=== PATIENT | female | born 1995 | race Caucasian/White ===

== ENCOUNTER 2017-02-08 14:58 | Emergency (ER) | payer OTHER ==
[~2017-02-08] VITALS: Ht 175.3 cm; Wt 84.0 kg
[~2017-02-08 14:58] MED LIST: CLIN-78 PO; CYCL10TA9 PO; HYDR-4003 PO; MUPI1OIN5 NASAL; NITR100 PO; NPR500T PO; ONDA4TAB9 PO; SULF1TAB7 PO; TRAM50TA2 PO
[2017-02-08 15:08] VITALS: BP 110/76; PULSE 103; RESP 16; O2SAT 99
--- NOTE | 2017-02-08 15:22 | ED.REPORT ---
HPI-Abd Pain F Under 40 Date of Service Feb 08, 2017 ED Provider: History of Present Illness: seen at urgent care on 02/06, dx with constipation drank mag citrate yesterday had small stool this am.. did a ct scan at urgent care. taking vicodin at the same time. no primary care. Nursing Notes Stated Complaint: STOMACH CRAMPING Chief Complaint: Female Abdominal Pain Nursing Notes Reviewed: Yes Allergies: Coded Allergies: Penicillins (Verified Allergy, Unknown, Hives, 06/17/16) Scheduled Clindamycin (Clindamycin) 300 Mg Capsule 300 MG PO QID Mupirocin Nasal Oint (Bactroban Nasal Oint) 1 Gm Oint...g. 1 APPLIC NASAL TID for 7 days Nitrofurantoin Monohyd/M-Cryst (MacroBid) 100 Mg Capsule 100 MG PO BID Nitrofurantoin Monohyd/M-Cryst (MacroBid) 100 Mg Capsule 100 MG PO BID Sulfamethoxazole/Trimeth 800-160 mg (Bactrim DS) 1 Each Tablet 1 TABLET PO BID Scheduled PRN Cyclobenzaprine (Cyclobenzaprine) 10 Mg Tablet 10 MG PO TID PRN PRN Spasm Hydrocodone-Acetaminophen 5-325 mg (Hydrocodone-Acetaminophen 5-325 mg) 1 Each Tablet 1 TABLET PO Q4H PRN PRN For Pain Naproxen (Naproxen) 500 Mg Tab 500 MG PO BID PRN PRN For Pain Ondansetron ODT (Zofran ODT) 4 Mg Tablet 4 MG PO Q4H PRN PRN For Nausea Ondansetron ODT (Zofran ODT) 4 Mg Tablet 4 MG PO Q4H PRN PRN For Nausea Tramadol (Tramadol) 50 Mg Tablet 50 MG PO Q4H PRN PRN For Pain General Time Seen by MD: 15:21 Chief Complaint Abdominal pain Hx Obtained From: Patient Sudden in Onset?: No Symptom Duration: Since onset Past Medical History Past Medical History Depression Prior meth and heroin abuse Past Surgical History wisdom teeth Family History Reports: Diabetes mellitus Smoking History Current Every Day Smoker (3 cig a day for 6 years) Social History Previous methamphetamine and heroin abuse Alcohol Use: "Social" Drug Use: Denies drug use, THC Occupation lives with boyfriend and daughter 02/08/2017 works at [employer] Status Independent Review of Systems Basic Review of Systems Eyes: Vision NL, No discharge Skin: No bruising, No rash, No itch Psychiatric: Normal thought content Physical Exam Initial Vital Signs Vital Signs (First) Date Time Temp Pulse Resp B/P Pulse Ox O2 Delivery O2 Flow Rate FiO2 02/08/17 15:08 36.6 103 16 110/76 99 Room Air Initial VS: Reviewed, Vital signs normal Head / Eyes: Atraumatic, Normocephalic, PERRL ENT: Mucous membranes moist, Conjunctiva normal, No scleral icterus Neck: Supple, Non-tender, Full range of motion Lymphatic: No lymphadenopathy Extremities: Vascular intact, Neuro intact, No swelling, No tenderness Skin: Warm, Dry, No cyanosis Neurologic: Alert, Oriented, Nonfocal Psychiatric: Mood/affect normal, Behavior normal, Normal thought content General/Constitutional: Awake, Alert, No acute distress Respiratory / Chest: Atraumatic, Breath sounds NL, Breath sounds = bilat, No respiratory distress Cardiovascular: Heart rate NL, Regular rhythm, Heart sounds NL, No gallop, No murmurs, No rubs, Cap refill not delayed, Peripheral circulation NL, Pulses = bilaterally Abdomen: Atraumatic, Soft, Non-tender, McBurney's non-tender, No guarding, No rebound, No hernia, No palpable mass, No pulsatile mass Bowel Sounds / Distention: Positive: Bowel sounds hypoactive Back: Atraumatic, Inspection NL, Full range of motion, Painless range of motion , Non-tender, No midline vertebral tend Head / Eyes: Atraumatic, Normocephalic, PERRL, EOMI ENT: Atraumatic, Airway patent, Mucous membranes moist, Pharynx NL Interpretation & Diagnostics Lab Results Interpretation Result Diagram: 02/08/17 1607 02/08/17 1607 Test 02/08/17 16:07 02/08/17 16:45 White Blood Count 6.7th/mm3 (3.8-10.1) Red Blood Count 4.49mil/mm3 (3.90-5.20) Hemoglobin 12.4g/dL (12.0-15.6) Hematocrit 37.7% (35.0-46.0) Mean Corpuscular Volume 84.0fL (81-100) Mean Corpuscular Hemoglobin 27.6pg (27.0-35.0) Mean Corpuscular Hemoglobin Concent 32.9% (32.0-37.0) Red Cell Distribution Width 13.3% (12.3-15.4) Platelet Count 225bil/L (150-400) Neutrophils (%) (Auto) 71.3% (40-74) Lymphocytes (%) (Auto) 18.8% (14-46) Monocytes (%) (Auto) 8.6% (4-12) Eosinophils (%) (Auto) 0.9% (0-5) Basophils (%) (Auto) 0.2% (0-3) Sodium Level 139mEq/L (134-144) Potassium Level 4.5mEq/L (3.5-5.2) Chloride Level 102mEq/L (97-108) Carbon Dioxide Level 24mmol/L (18-29) Blood Urea Nitrogen 11mg/dL (6-20) Creatinine 0.64mg/dL (0.57-1.00) Estimat Glomerular Filtration Rate 166mL/min (>59) Glucose Level 68mg/dL (60-99) Calcium Level 8.9mg/dL (8.5-10.1) Total Bilirubin 0.2mg/dL (0.0-1.2) Aspartate Amino Transf (AST/SGOT) 22U/L (0-50) Alanine Aminotransferase (ALT/SGPT) 20U/L (0-32) Alkaline Phosphatase 59U/L (25-150) Total Protein 7.2g/dL (6.4-8.4) Albumin 4.4g/dL (3.4-5.0) Hold Morales Top Tube Received (Received) Urine Color Yellow (YELLOW) Urine Appearance Hazy (CLEAR,HAZY) Urine pH 7.5 (5.0-8.0) Urine Specific Stevens 1.020 (1.003-1.035) Urine Protein Negativemg/dL (NEG,TRACE) Urine Glucose (UA) Negativemg/dL (NEGATIVE) Urine Ketones Negativemg/dL (NEGATIVE) Urine Occult Blood Negative (NEGATIVE) Urine Nitrite Negative (NEGATIVE) Urine Bilirubin Negative (NEGATIVE) Urine Urobilinogen Normalmg/dL (NORMAL) Urine Leukocyte Esterase Negative (NEGATIVE) Urine RBC 0-2/hpf (0-2) Urine WBC 0-5/hpf (0-5) Urine Epithelial Cells Few/hpf (NONE-MOD) Urine Crystals None seen (NONE SEEN) Urine Bacteria None/hpf (NONE-FEW) Urine Hyaline Casts None/lpf (NONE) Urine Granular Casts None seen (NONE SEEN) Urine Waxy Casts None seen (NONE SEEN) Urine Red Blood Cell Casts None seen (NONE SEEN) Urine White Blood Cell Casts None seen (NONE SEEN) Urine Mucus None seen (None Seen) Urine Trichomonas None seen (NONE SEEN) Urine Yeast None (NONE SEEN) Urinalysis Comment None Urine Culture Reflexed Not indicated Lab Results Interpretation: urine is negative X-Ray Abdominal Interpretation PROCEDURE: X-RAY KUB ([id number]) INDICATIONS: abdominal pain constipation TECHNIQUE: One view of the abdomen acquired. COMPARISON: [facility], CT, CT ABD PELVIS W CON, 02/06/2017, 15:22. FINDINGS: Surgical changes and devices: None. Bowel: Bowel gas pattern is normal except for colonic obstipation both on the right and left.. Soft tissues: No suspicious abdominal calcifications. Visualized solid organ contours appear normal in size. Bones: No suspicious bony lesions. IMPRESSION: Mild colonic obstipation with oral contrast previously administered for CT scanning for having transited into the colon both on the right and left. Dictated by: Kike Colbert M.D. on 02/08/2017 at 16:08 Approved by: Kike Colbert M.D. on 02/08/2017 at 16:09 Re-Eval/Medical Decision Med Decision/Clinical Course Med Decision/Clinical Course: 21 year old female referred from ER because she took a bottle of mag citrate and did not have a large stool movement. Patient has been taking hydrocodone at the same time. Labs are normal. palin film shows large amount of stool. exam is reassuring. No sign of appendicitis or peritionitis. Discussed the time frame to expect a stool movement and foods she may use to help movement. Discharge & Departure Primary Impression: Constipation Constipation type: other constipation type Qualified Code: K59.09 - Other constipation Disposition: Home Patient Instructions: Constipation (ED), High Fiber Diet (ED) Additional Instructions: The x-ray still shows a large amount of stool. Do not take medication that will stop the stool from moving such as vicodin and zofran. Take the whole bottle of magnesium citrate this evening. I would not expect any stool movement till tomorrow at the earliest. Try to increase fiber in your diet. Choose foods from the list of high fiber foods. If not stool movement tomorrow, repeat the magnesium citrate. It can take24 to 48 hours before you see movement sometime. Can use a warm heating pad to help relax your tummy muscles. REturn if fever or no stool in 48 hours. Your labs are all normal which is reassuring. Please establish in primary care. Consider the residency clinic. Referrals: [facility] Residency Clinic EDSupervising Provider for APC: Keke Pate MD copies to: [facility] Residency [facility] Sally Smallwood Feb 08, 2017 15:22
--- NOTE | 2017-02-08 16:11 | DRSVH ---
PROCEDURE: X-RAY KUB ([id number]) INDICATIONS: abdominal pain constipation TECHNIQUE: One view of the abdomen acquired. COMPARISON: [facility], CT, CT ABD PELVIS W CON, 02/06/2017, 15:22. FINDINGS: Surgical changes and devices: None. Bowel: Bowel gas pattern is normal except for colonic obstipation both on the right and left.. Soft tissues: No suspicious abdominal calcifications. Visualized solid organ contours appear normal in size. Bones: No suspicious bony lesions. IMPRESSION: Mild colonic obstipation with oral contrast previously administered for CT scanning for having transited into the colon both on the right and left. Dictated by: Kike Colbert M.D. on 02/08/2017 at 16:08 Approved by: Kike Colbert M.D. on 02/08/2017 at 16:09
[2017-02-08 16:30] LABS: BASOPHILS % (AUTO) 0.2 % (0-3); EOSINOPHILS % (AUTO) 0.9 % (0-5); MONOCYTES % (AUTO) 8.6 % (4-12); Mean Corpuscular Hemoglobin 27.6 pg (27.0-35.0); NEUTROPHILS % (AUTO) 71.3 % (40-74); Platelet Count 225 bil/L (150-400)
[2017-02-08 17:20] LABS: APPEARANCE,URINE HAZY (CLEAR,HAZY); COLOR,URINE YELLOW (YELLOW); OCCULT BLOOD,URINE NEGATIVE (NEGATIVE); PH,URINE 7.5 (5.0-8.0); UROBILINOGEN,URINE NORMAL (NORMAL)
== END 2017-02-08 17:05 | disposition home or self-care (01) ==
LOC: SED 14:58
DX: K59.09 Other constipation (principal); F17.200 Nicotine dependence, unspecified, uncomplicated; Z79.899 Other long term (current) drug therapy; Z88.0 Allergy status to penicillin

== ENCOUNTER 2017-02-14 10:30 | Emergency (ER) | payer OTHER ==
[~2017-02-14] VITALS: Ht 175.3 cm; Wt 84.1 kg
[2017-02-14 10:50] VITALS: BP 122/74; PULSE 103; RESP 18; O2SAT 100
--- NOTE | 2017-02-14 11:37 | DRSVH ---
PROCEDURE: X-RAY ACUTE ABDOMINAL SERIES ([id number]) INDICATIONS: constipation TECHNIQUE: One view chest and two views of the abdomen were acquired. COMPARISON: [facility], CR, XR KUB, 02/08/2017, 15:38. FINDINGS: Surgical changes and devices: None. Chest: Lungs are clear. Heart size is normal. No pleural effusions. No pneumoperitoneum. Abdomen: Bowel gas pattern is normal. The amount of stool within the distal colon is less prominent . No suspicious calcifications. Visualized solid organ contours appear normal. Bones: No suspicious bony lesions. IMPRESSION: The amount of stool is less prominent within the distal colon. No obstruction. Dictated by: Kam Mahajan M.D. on 02/14/2017 at 10:31 Approved by: Kam Mahajan M.D. on 02/14/2017 at 10:35
[2017-02-14 11:42] LABS: BASOPHILS % (AUTO) 0.2 % (0-3); EOSINOPHILS % (AUTO) 0.9 % (0-5); MONOCYTES % (AUTO) 8.8 % (4-12); Mean Corpuscular Hemoglobin 27.5 pg (27.0-35.0); Mean Corpuscular Volume 84.1 fL (81-100); NEUTROPHILS % (AUTO) 65.4 % (40-74); Platelet Count 261 bil/L (150-400)
[2017-02-14 12:14] LABS: Magnesium 1.7 mg/dL (1.6-2.6)
--- NOTE | 2017-02-14 13:15 | ED.REPORT ---
HPI-Abd Pain F Under 40 Date of Service Feb 14, 2017 ED Provider: Mariama Hansen MD 21 y/o healthy female presents to the ED complaining abdominal and back pain since this morning. She has been constipated for 12 days. Pt went to an urgent care clinic where she was diagnosed with constipation and prescribed magnesium citrate, with little effect. She reported to the ED yesterday for the same sx and was prescribed magnesium citrate again. The pt also tried an at home enema but has not experienced any improvement in her sx. Nursing Notes Stated Complaint: NO BOWEL MOVEMENT Chief Complaint: Female Abdominal Pain Nursing Notes Reviewed: Yes Allergies: Coded Allergies: Penicillins (Verified Allergy, Unknown, Hives, 06/17/16) Scheduled Clindamycin (Clindamycin) 300 Mg Capsule 300 MG PO QID Mupirocin Nasal Oint (Bactroban Nasal Oint) 1 Gm Oint...g. 1 APPLIC NASAL TID for 7 days Nitrofurantoin Monohyd/M-Cryst (MacroBid) 100 Mg Capsule 100 MG PO BID Nitrofurantoin Monohyd/M-Cryst (MacroBid) 100 Mg Capsule 100 MG PO BID Peg/Electrolytes (Golytely Solution) 4,000 Ml Soln 4,000 ML PO Q15min Sulfamethoxazole/Trimeth 800-160 mg (Bactrim DS) 1 Each Tablet 1 TABLET PO BID Scheduled PRN Cyclobenzaprine (Cyclobenzaprine) 10 Mg Tablet 10 MG PO TID PRN PRN Spasm Hydrocodone-Acetaminophen 5-325 mg (Hydrocodone-Acetaminophen 5-325 mg) 1 Each Tablet 1 TABLET PO Q4H PRN PRN For Pain Naproxen (Naproxen) 500 Mg Tab 500 MG PO BID PRN PRN For Pain Ondansetron ODT (Zofran ODT) 4 Mg Tablet 4 MG PO Q4H PRN PRN For Nausea Ondansetron ODT (Zofran ODT) 4 Mg Tablet 4 MG PO Q4H PRN PRN For Nausea Tramadol (Tramadol) 50 Mg Tablet 50 MG PO Q4H PRN PRN For Pain General Time Seen by MD: 13:14 Chief Complaint Abdominal pain Hx Obtained From: Patient Arrived By: Walk-in Sudden in Onset?: No Onset Occurred: 21 - 23 hours ago Symptom Duration: Since onset Progression since Onset: Unchanged Location: : Diffuse Quality: Painful Radiation: : Back Severity: Current: Mild Severity: Maximum: Mild Recent Healthcare: Recent doctor visit Similar Sx Previous: Yes Past Medical History Past Medical History Depression Prior meth and heroin abuse Past Surgical History wisdom teeth Family History Reports: Diabetes mellitus Smoking History Current Every Day Smoker Social History Previous methamphetamine and heroin abuse Alcohol Use: "Social" Drug Use: Denies drug use, THC Occupation lives with boyfriend and daughter 02/08/2017 works at [employer] Status Independent Review of Systems GI: Reports: Abdominal pain, Constipation Musculoskeletal: Reports: Back pain Complete sys rev & neg: except as marked. Physical Exam Initial Vital Signs Vital Signs (First) Date Time Temp Pulse Resp B/P Pulse Ox O2 Delivery O2 Flow Rate FiO2 02/14/17 10:50 36.8 103 18 122/74 100 Room Air Initial VS: Reviewed, Vital signs abnormal Head / Eyes: Atraumatic, Normocephalic, PERRL ENT: Mucous membranes moist, Conjunctiva normal, No scleral icterus Neck: Supple, Non-tender, Full range of motion Extremities: Vascular intact, Neuro intact, No swelling, No tenderness Skin: Warm, Dry, No cyanosis Neurologic: Alert, Oriented, Nonfocal Psychiatric: Mood/affect normal, Behavior normal, Normal thought content General/Constitutional: Awake, Alert, Well appearing, Cooperative, Not toxic appearing Respiratory / Chest: Atraumatic, Breath sounds NL, Breath sounds = bilat, No respiratory distress, No rales, No rhonchi, No wheezing, No retractions Cardiovascular: Heart rate NL, Regular rhythm, Heart sounds NL, No murmurs Abdomen: Atraumatic, Soft, No guarding, No rebound Tenderness/Guarding/Rebound: Positive: Tender diffuse Back: Full range of motion Rectum / Perineum: Atraumatic, No gross blood there is soft brown stool in the rectal vault. Interpretation & Diagnostics Lab Results Interpretation Result Diagram: 02/14/17 1133 02/14/17 1133 Test 02/14/17 11:33 02/14/17 11:36 White Blood Count 8.7th/mm3 (3.8-10.1) Red Blood Count 4.65mil/mm3 (3.90-5.20) Hemoglobin 12.8g/dL (12.0-15.6) Hematocrit 39.1% (35.0-46.0) Mean Corpuscular Volume 84.1fL (81-100) Mean Corpuscular Hemoglobin 27.5pg (27.0-35.0) Mean Corpuscular Hemoglobin Concent 32.7% (32.0-37.0) Red Cell Distribution Width 13.2% (12.3-15.4) Platelet Count 261bil/L (150-400) Neutrophils (%) (Auto) 65.4% (40-74) Lymphocytes (%) (Auto) 24.5% (14-46) Monocytes (%) (Auto) 8.8% (4-12) Eosinophils (%) (Auto) 0.9% (0-5) Basophils (%) (Auto) 0.2% (0-3) Sodium Level 139mEq/L (134-144) Potassium Level 4.0mEq/L (3.5-5.2) Chloride Level 103mEq/L (97-108) Carbon Dioxide Level 23mmol/L (18-29) Blood Urea Nitrogen 8mg/dL (6-20) Creatinine 0.73mg/dL (0.57-1.00) Estimat Glomerular Filtration Rate 143mL/min (>59) Glucose Level 93mg/dL (60-99) Calcium Level 9.3mg/dL (8.5-10.1) Magnesium Level 1.7mg/dL (1.6-2.6) Total Bilirubin 0.2mg/dL (0.0-1.2) Aspartate Amino Transf (AST/SGOT) 28U/L (0-50) Alanine Aminotransferase (ALT/SGPT) 24U/L (0-32) Alkaline Phosphatase 61U/L (25-150) Total Protein 7.1g/dL (6.4-8.4) Albumin 4.5g/dL (3.4-5.0) Hold Morales Top Tube Received (Received) X-Ray Abdominal Interpretation IMPRESSION: The amount of stool is less prominent within the distal colon. No obstruction. Dictated by: Kam Mahajan M.D. on 02/14/2017 at 10:31 Approved by: Kam Mahajan M.D. on 02/14/2017 at 10:35 Study: 4 view Re-Eval/Medical Decision Med Decision/Clinical Course The patient presents with generalized abdominal pain and a complaint of constipation. Her x-ray shows less stool just soft stool on examination. She complains of abdominal pain but has a benign abdomen. The patient is quite concerned about having more bowel movements that she was offered GoLYTELY. There are no signs of infection at this point such as diverticulitis, appendicitis, gastroenteritis, cholecystitis, or pancreatitis. And there is no sign of obstruction. Source of Hx: Old records Re-Evaluation/Progress : Time of Eval: 14:00 Re-Evaluation/Progress Note: Rechecked pt. Discussed lab and imaging results and diagnosis. Informed the pt of the plan to discharge. Pt understands and agrees with plan. F/U instructions and RTER warning given. All questions addressed. Counseled Regarding: Diagnosis, Lab results, Need for follow-up, When/why to return to ED Discharge & Departure Primary Impression: Constipation Constipation type: unspecified constipation type Qualified Code: K59.00 - Constipation, unspecified Disposition: Home Discharge Condition All VS Reviewed: Yes Condition: Stable Patient Instructions: Constipation (ED) Additional Instructions: Your diagnosis is constipation. Please drink the Florina until you've had a few bowl movement or until your stool is clear. Follow up with your primary care provider for further evaluation. Return to the emergency department in case of high fever, worsening abdominal pain or any other new symptoms Referrals: [facility] Residency [facility] Scribe Attestation Portions of this note were transcribed by Meenu Cortez. I, , personally performed the history, physical exam and medical decision-making;I reviewed and confirmed the accuracy of the information in the transcribed note. Signed by Ivonne Osman. 02/14/17 1530 copies to: [facility] Res[facility] Mariama Hansen MD Feb 14, 2017 13:15 Meenu Somers Feb 14, 2017 13:38 Sue Cortez Feb 14, 2017 15:22
[2017-02-14] MEDS ORDERED: COLL PO (13:42)
== END 2017-02-14 14:28 | disposition home or self-care (01) ==
LOC: SED 10:30
DX: K59.00 Constipation, unspecified (principal); M54.5 Low back pain; R10.84 Generalized abdominal pain; F17.200 Nicotine dependence, unspecified, uncomplicated; Z88.0 Allergy status to penicillin

== ENCOUNTER 2017-03-26 12:36 | Emergency (ER) | payer OTHER ==
[~2017-03-26] VITALS: Ht 175.3 cm; Wt 75.0 kg
[~2017-03-26 12:36] MED LIST changes: +COLL PO
[2017-03-26 12:38] VITALS: BP_SYST 147; BP_SYST 47; BP_DIAS 73; PULSE 117; RESP 16; O2SAT 96
--- NOTE | 2017-03-26 13:11 | ED.REPORT ---
HPI-Rash / Abscess Date of Service Mar 26, 2017 ED Provider: Sukh Todd PA-C Rosibel is otherwise healthy 21-year-old female presented with a chief complaint of a rash on her right collarbone. Patient reports a burning sensation and itching over her right shoulder yesterday which she attributed to sun exposure. Noticed a small vesicle early this morning and has progressed to many vesicles today. Associated with burning pain over her right shoulder and stopping at her sternum. Denies recent illness, fever. Admits history of chickenpox, MRSA. Nursing Notes Stated Complaint: SKIN INFECTION Chief Complaint: Skin Rash/Abscess Nursing Notes Reviewed: Yes Allergies: Coded Allergies: Penicillins (Verified Allergy, Unknown, Hives, 03/26/17) Scheduled Clindamycin (Clindamycin) 300 Mg Capsule 300 MG PO QID Mupirocin (Mupirocin Ointment) 22 Gm Oint...g. 1 APPLIC TOP TID Mupirocin Nasal Oint (Bactroban Nasal Oint) 1 Gm Oint...g. 1 APPLIC NASAL TID for 7 days Nitrofurantoin Monohyd/M-Cryst (MacroBid) 100 Mg Capsule 100 MG PO BID Nitrofurantoin Monohyd/M-Cryst (MacroBid) 100 Mg Capsule 100 MG PO BID Peg/Electrolytes (Golytely Solution) 4,000 Ml Soln 4,000 ML PO Q15min Sulfamethoxazole/Trimeth 800-160 mg (Bactrim DS) 1 Each Tablet 1 TABLET PO BID Valacyclovir (Valacyclovir) 1,000 Mg Tablet 1,000 MG PO TID Scheduled PRN Cyclobenzaprine (Cyclobenzaprine) 10 Mg Tablet 10 MG PO TID PRN PRN Spasm Hydrocodone-Acetaminophen 5-325 mg (Hydrocodone-Acetaminophen 5-325 mg) 1 Each Tablet 1 TABLET PO Q4H PRN PRN For Pain Ibuprofen (Ibuprofen) 600 Mg Tablet 600 MG PO QID PRN PRN For Pain Naproxen (Naproxen) 500 Mg Tab 500 MG PO BID PRN PRN For Pain Ondansetron ODT (Zofran ODT) 4 Mg Tablet 4 MG PO Q4H PRN PRN For Nausea Ondansetron ODT (Zofran ODT) 4 Mg Tablet 4 MG PO Q4H PRN PRN For Nausea Tramadol (Tramadol) 50 Mg Tablet 50 MG PO Q4H PRN PRN For Pain General Time Seen by MD: 12:55 Chief Complaint Blisters Past Medical History Past Medical History Depression Prior meth and heroin abuse Past Surgical History wisdom teeth Family History Reports: Diabetes mellitus Smoking History Current Every Day Smoker Social History Previous methamphetamine and heroin abuse Alcohol Use: "Social" Drug Use: Denies drug use, THC Occupation lives with boyfriend and daughter 02/08/2017 works at [employer] Status Independent Review of Systems General: Denies fever, chills, malaise. HEENT: Denies congestion, headache, sore throat. Respiratory: Denies dyspnea, cough, shortness of breath, wheezing. Cardiovascular: Admits chest pain, denies palpitations. Gastrointestinal: Denies vomiting, diarrhea, abdominal pain. Otherwise as noted in HPI. Physical Exam General: Well appearing, well developed, well nourished, no acute distress. Right shoulder: 4 cm x 2 cm area of redness with small vesicles over the clavicle. Diffusely tender to light touch. Otherwise normal to inspection Head: Atraumatic, normocephalic. Eyes: No scleral icterus or injection. No discharge. Vision grossly intact. ENT: Voice clear, hearing grossly intact. Respiratory: Regular rate and rhythm. Breath sounds present, clear to auscultation and equal bilaterally. No respiratory distress. No increased work of breathing, speaks in complete sentences. Cardiovascular: Regular rate (88) and rhythm, without murmur, gallop or rub. No pedal edema. Skin: Warm and dry. Neurological: Grossly nonfocal. Psychological: Alert and oriented. Speech appropriate, linear and logical. Behavior appropriate. Initial Vital Signs Vital Signs (First) Date Time Temp Pulse Resp B/P Pulse Ox O2 Delivery O2 Flow Rate FiO2 03/26/17 12:38 36.4 117 16 147/73 96 Room Air Re-Eval/Medical Decision Med Decision/Clinical Course 19-year-old female presents with a painful rash on her right clavicle. Patient reports burning pain in the region yesterday, onset of a single vesicle last night and multiple vesicles this morning. Admits history of chickenpox. Physical examination reveals a roughly 2 cm patch of erythema with small vesicles over the right clavicle, surrounding tenderness to light touch. Patient is afebrile, mild tachycardia noted at triage appears to have resolved at examination. I discussed this case with Dr. Pate who met with and examined the patient. We agree that this is most likely to be shingles, less likely to be abscess, impetigo, cellulitis. Provided prescription for valacyclovir, mupirocin, ibuprofen. Advised primary care follow-up, emergency return precautions. Patient verbalizes understanding of and consent to the plan. Discharge & Departure Impression: Primary Impression: Shingles Herpes zoster complications: without complications Qualified Code: B02.9 - Zoster without complications Disposition: Home Discharge Condition All VS Reviewed: Yes Patient Instructions: Shingles (ED) Additional Instructions: Evaluation for rash in the emergency department consists of history and physical examination both would suggest this is an outbreak of shingles. I will prescribe an antiviral medication, valacyclovir, to be taken 3 times a day for 7 days. I will also write prescription for mupirocin (see Bactroban) which you can use on the rash to keep it moist and prevent a bacterial infection from forming. I will also write a prescription for ibuprofen, to treat the pain. This will likely take some time to resolve, although fortunately we caught it early so that valacyclovir should be helpful. Follow up with your primary care provider this is not significantly improved in 2 weeks. Return to emergency department for any new or worsening symptoms including increasing redness, pain or discharge. Referrals: [facility] Residency Clinic EDSupervising Provider for APC: Keke Pate MD Attending Statement Patient seen and examined with Mr. Todd. I agree that this is shingles. Precautions and risk of infection spread is reviewed. Agree with treatment and plan as above Sukh Todd PA-C Mar 26, 2017 13:10 Keke Pate MD Mar 26, 2017 18:24
[2017-03-26] MEDS ORDERED: VALA100026 PO (13:33)
[2017-03-26] MEDS ORDERED: MUPI22OI2 TOP (13:33)
[2017-03-26] MEDS ORDERED: IBUP-1827 PO (13:33)
[2017-03-26 13:47] VITALS: BP 115/84; PULSE 74; RESP 13; O2SAT 96
== END 2017-03-26 14:14 | disposition home or self-care (01) ==
LOC: SED 12:36
DX: B02.9 Zoster without complications (principal); F17.200 Nicotine dependence, unspecified, uncomplicated; Z88.0 Allergy status to penicillin

== ENCOUNTER 2017-06-06 14:36 | Emergency (ER) | payer OTHER ==
[~2017-06-06] VITALS: Ht 175.3 cm; Wt 79.1 kg
[~2017-06-06 14:36] MED LIST changes: +IBUP-1827 PO; +MUPI22OI2 TOP; +VALA100026 PO
[2017-06-06 14:41] VITALS: BP 105/76; PULSE 125; RESP 15; O2SAT 98
--- NOTE | 2017-06-06 15:05 | ED.REPORT ---
HPI- Female Date of Service Jun 06, 2017 ED Provider: Dr. Edgar El MD A 21 year old, 13 week female presents to the ED with abdominal cramping that began a few days but became increasingly worse this afternoon. The patent reportedly had a pap smear yesterday. She has had abnormal pap smears since she was 17 and yesterday's pap resulted in vaginal bleeding. Patient also reports experiencing dizziness and vaginal pain for the past 3 days. She has taken Tylenol with no relief. Her current abdominal pain does not feel similar to her previous labor pains. Rh is unknown at this time. Nursing Notes Stated Complaint: STOMACH PAIN Chief Complaint: & Delivery Nursing Notes Reviewed: Yes Allergies: Coded Allergies: Penicillins (Verified Allergy, Unknown, Hives, 03/26/17) Scheduled Clindamycin (Clindamycin) 300 Mg Capsule 300 MG PO QID Mupirocin (Mupirocin Ointment) 22 Gm Oint...g. 1 APPLIC TOP TID Mupirocin Nasal Oint (Bactroban Nasal Oint) 1 Gm Oint...g. 1 APPLIC NASAL TID for 7 days Nitrofurantoin Monohyd/M-Cryst (MacroBid) 100 Mg Capsule 100 MG PO BID Nitrofurantoin Monohyd/M-Cryst (MacroBid) 100 Mg Capsule 100 MG PO BID Peg/Electrolytes (Golytely Solution) 4,000 Ml Soln 4,000 ML PO Q15min Sulfamethoxazole/Trimeth 800-160 mg (Bactrim DS) 1 Each Tablet 1 TABLET PO BID Valacyclovir (Valacyclovir) 1,000 Mg Tablet 1,000 MG PO TID Scheduled PRN Cyclobenzaprine (Cyclobenzaprine) 10 Mg Tablet 10 MG PO TID PRN PRN Spasm Hydrocodone-Acetaminophen 5-325 mg (Hydrocodone-Acetaminophen 5-325 mg) 1 Each Tablet 1 TABLET PO Q4H PRN PRN For Pain Ibuprofen (Ibuprofen) 600 Mg Tablet 600 MG PO QID PRN PRN For Pain Naproxen (Naproxen) 500 Mg Tab 500 MG PO BID PRN PRN For Pain Ondansetron ODT (Zofran ODT) 4 Mg Tablet 4 MG PO Q4H PRN PRN For Nausea Ondansetron ODT (Zofran ODT) 4 Mg Tablet 4 MG PO Q4H PRN PRN For Nausea Tramadol (Tramadol) 50 Mg Tablet 50 MG PO Q4H PRN PRN For Pain General Time Seen by MD: 15:05 Chief Complaint Abdominal pain... (Suprapubic) Hx Obtained From: Patient Arrived By: Walk-in Sudden in Onset?: No Onset Occurred: 3 days ago Context of Onset: , 1st trimester Symptom Duration: Since onset Location: : Suprapubic Quality: Cramping Radiation: Does not radiate Severity: Current: Moderate Severity: Maximum: Moderate Associated with: Reports: Abdominal pain Pertinent Negative: Pt denies other symptoms Status: Positive - ED serum HCG Recent Healthcare: No recent hospitalization, Recent doctor visit Past Medical History Past Medical History Depression Prior meth and heroin abuse Past Surgical History [place] teeth Family History Reports: Diabetes mellitus Smoking History Current Every Day Smoker Social History Previous methamphetamine and heroin abuse Boyfriend recently left Alcohol Use: "Social" Drug Use: In recovery, THC Other Social History: Local resident 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 Physical Exam Initial Vital Signs Vital Signs (First) Date Time Temp Pulse Resp B/P Pulse Ox O2 Delivery O2 Flow Rate FiO2 06/06/17 14:41 36.2 125 15 105/76 98 Room Air Initial VS: Reviewed Head / Eyes: Atraumatic, Normocephalic, PERRL Neck: Supple, Non-tender, Full range of motion Extremities: Vascular intact, Neuro intact, No swelling, No tenderness Skin: Warm, Dry, No cyanosis Neurologic: Alert, Oriented, Nonfocal Psychiatric: Mood/affect normal, Behavior normal, Normal thought content Respiratory / Chest: Atraumatic, Breath sounds NL, Breath sounds = bilat, No respiratory distress Cardiovascular: Regular rhythm, Heart sounds NL Heart Rate / Rhythm: Positive: Tachycardia (140 bpm) Abdomen: Atraumatic, Soft, Non-tender Interpretation & Diagnostics Lab Results Interpretation Result Diagram: 06/06/17 1516 06/06/17 1516 Test 06/06/17 15:16 06/06/17 16:44 White Blood Count 8.2th/mm3 (3.8-10.1) Red Blood Count 4.22mil/mm3 (3.90-5.20) Hemoglobin 11.9g/dL (12.0-15.6) Hematocrit 34.5% (35.0-46.0) Mean Corpuscular Volume 81.8fL (81-100) Mean Corpuscular Hemoglobin 28.2pg (27.0-35.0) Mean Corpuscular Hemoglobin Concent 34.5% (32.0-37.0) Red Cell Distribution Width 14.1% (12.3-15.4) Platelet Count 196bil/L (150-400) Neutrophils (%) (Auto) 76.8% (40-74) Lymphocytes (%) (Auto) 15.4% (14-46) Monocytes (%) (Auto) 6.9% (4-12) Eosinophils (%) (Auto) 0.6% (0-5) Basophils (%) (Auto) 0.2% (0-3) Sodium Level 137mEq/L (134-144) Potassium Level 3.8mEq/L (3.5-5.2) Chloride Level 102mEq/L (97-108) Carbon Dioxide Level 20mmol/L (18-29) Blood Urea Nitrogen 5mg/dL (6-20) Creatinine 0.37mg/dL (0.57-1.00) Estimat Glomerular Filtration Rate 313mL/min (>59) Glucose Level 92mg/dL (60-99) Calcium Level 9.2mg/dL (8.5-10.1) Total Bilirubin 0.2mg/dL (0.0-1.2) Aspartate Amino Transf (AST/SGOT) 13U/L (0-50) Alanine Aminotransferase (ALT/SGPT) 9U/L (0-32) Alkaline Phosphatase 40U/L (25-150) Total Protein 7.1g/dL (6.4-8.4) Albumin 4.1g/dL (3.4-5.0) Urine Color Yellow (YELLOW) Urine Appearance Hazy (CLEAR,HAZY) Urine pH 6.0 (5.0-8.0) Urine Specific [place] 1.015 (1.003-1.035) Urine Protein Negativemg/dL (NEG,TRACE) Urine Glucose (UA) Negativemg/dL (NEGATIVE) Urine Ketones 80mg/dL (NEGATIVE) Urine Occult Blood Negative (NEGATIVE) Urine Nitrite Positive (NEGATIVE) Urine Bilirubin Negative (NEGATIVE) Urine Urobilinogen Normalmg/dL (NORMAL) Urine Leukocyte Esterase Small (NEGATIVE) Urine RBC 0-2/hpf (0-2) Urine WBC 11-50/hpf (0-5) Urine Epithelial Cells Moderate/hpf (NONE-MOD) Urine Crystals None seen (NONE SEEN) Urine Bacteria Many/hpf (NONE-FEW) Urine Hyaline Casts None/lpf (NONE) Urine Granular Casts None seen (NONE SEEN) Urine Waxy Casts None seen (NONE SEEN) Urine Red Blood Cell Casts None seen (NONE SEEN) Urine White Blood Cell Casts None seen (NONE SEEN) Urine Mucus Present (None Seen) Urine Trichomonas None seen (NONE SEEN) Urine Yeast None (NONE SEEN) Urinalysis Comment None Urine Culture Reflexed Indicated US Focused OB No contractions or signs of active labor Amniotic fluid normal Exam Performed by: ED physician Findings: heart rate (140) Re-Eval/Medical Decision Re-Evaluation/Progress #1: Time of Eval: 15:37 Patient Status: Condition improved Re-Evaluation/Progress Note: Bedside US is performed. Patient tolerates well and is informed of the results. All questions about her diagnosis are addressed. Re-Evaluation/Progress #2: Time of Eval: 16:56 Re-Evaluation/Progress Note: Pain is present. She is informed of her lab results and likely diagnosis. She reports experieincing dysuria just prior to recheck. Re-Evaluation/Progress #3: Time of Eval: 17:17 Patient Status: Condition improved Re-Evaluation/Progress Note: Discussed urine results with the pateint. Treated with IV Rocephin. Patient denies any difficulty with Keflex treatment in the past. Counseled Regarding: Diagnosis, Lab results, Need for follow-up, When/why to return to ED Discharge & Departure Impression: Primary Impression: Abdominal pain during in first trimester Additional Impression: UTI (urinary tract infection) Urinary tract infection type: site unspecified Hematuria presence: without hematuria Qualified Code: N39.0 - Urinary tract infection, site not specified Disposition: Home Discharge Condition All VS Reviewed: Yes Condition: Improved Patient Instructions: Abdominal Pain (ED), Anemia (ED), (ED), Urinary Tract Infection in Women (ED) Additional Instructions: Your emergency department evaluation today including examination and ultrasound are reassuring that there is no emergent cause for concern at this time. Your lab work did reveal a urinary tract infection and slight anemia and I believe that this is the likely cause for your symptoms. I recommend that you schedule a follow-up appointment with Dr. Garduno tomorrow for a recheck. Take Keflex 4 times daily for 7 days to treat your urinary tract infection. Take 1-2 *[place] 8 hours as needed for pain. * Please do not drink, drive or use acetaminophen while taking this medication. This medication may cause drowsiness. Please return to the emergency department for any new or worsening conditions including any fevers, chills, nausea, vomiting, heavy vaginal bleeding (>1 pad per hour), worsening abdominal pain, chest pain, shortness of breath, excessive sweating, lightheadedness, weakness or any other concerning symptoms. Referrals: Robyn Garduno MD (PCP) Scribe Attestation Portions of this note were transcribed by Armand Kennedy. I, Dr. El personally performed the history, physical exam and medical decision-making; I reviewed and confirmed the accuracy of the information in the transcribed note. copies to: Robyn Garduno MD, Todd P DO Jun 06, 2017 15:05 ARMAND KENNEDY Jun 06, 2017 15:14
[2017-06-06] MEDS ORDERED: 0.9% Sodium Chloride 1,000 ML IV ONE (15:15)
[2017-06-06] MEDS ORDERED: fentaNYL-PF 50 mCg/mL 2 mL Inj IVPUSH ONE (15:15)
[2017-06-06] MEDS ORDERED: Ondansetron 2 mg/mL 2 mL Inj IVPUSH PRN (15:15)
[2017-06-06 15:23] LABS: BASOPHILS % (AUTO) 0.2 % (0-3); EOSINOPHILS % (AUTO) 0.6 % (0-5); MONOCYTES % (AUTO) 6.9 % (4-12); Mean Corpuscular Hemoglobin 28.2 pg (27.0-35.0); Mean Corpuscular Volume 81.8 fL (81-100); NEUTROPHILS % (AUTO) 76.8 % (40-74); Platelet Count 196 bil/L (150-400)
[2017-06-06] MEDS ORDERED: HYDROcodone-APAP 5-325 mg Tablet PO ONE (16:55)
[2017-06-06 17:08] LABS: APPEARANCE,URINE HAZY (CLEAR,HAZY); COLOR,URINE YELLOW (YELLOW); OCCULT BLOOD,URINE NEGATIVE (NEGATIVE); UROBILINOGEN,URINE NORMAL (NORMAL)
[2017-06-06] MEDS ORDERED: cefTRIAXone Inj 2,000 MG in Dextrose 5% Minibag Plus 50 ML IV ONE (17:15)
[2017-06-06 18:06] VITALS: BP 105/64; PULSE 78; RESP 15; O2SAT 100
== END 2017-06-06 18:00 | disposition home or self-care (01) ==
LOC: SED 14:36
DX: O23.41 Unspecified infection of urinary tract in pregnancy, first trimester (principal); B96.20 Unspecified Escherichia coli [E. coli] as the cause of diseases classified elsewhere; Z3A.13 13 weeks gestation of pregnancy; F17.200 Nicotine dependence, unspecified, uncomplicated; F32.9 Major depressive disorder, single episode, unspecified
CPT/HCPCS: 36415; 76815; 80053; 81000; 85025; 87086; 87088; 87186; 96361; 96365; 96375; 99285; J0696; J3010; J7030

== ENCOUNTER 2017-06-11 15:18 | Emergency (ER) | payer OTHER ==
[~2017-06-11] VITALS: Ht 175.3 cm; Wt 79.0 kg
[2017-06-11 15:19] VITALS: BP 110/73; PULSE 128; RESP 15; O2SAT 99
[2017-06-11 16:22] LABS: BASOPHILS % (AUTO) 0.1 % (0-3); EOSINOPHILS % (AUTO) 0.5 % (0-5); Mean Corpuscular Hemoglobin 28.5 pg (27.0-35.0); Mean Corpuscular Volume 82.3 fL (81-100); NEUTROPHILS % (AUTO) 78.9 % (40-74); Platelet Count 187 bil/L (150-400)
[2017-06-11 16:42] LABS: Magnesium 1.6 mg/dL (1.6-2.6)
--- NOTE | 2017-06-11 17:17 | ED.REPORT ---
HPI-Preg Under 20 Weeks Date of Service Jun 11, 2017 ED Provider: Sally Smallwood History of Present Illness: seen on 06/06 with a uti and a yeast infection taking keflex on it for a few days feels it is not better. Garduno is primary care appointment 07/10/2017 with garduno. not taking anything for the nausea. requesting a meal in the ER. States received fentanyl in the ER on last visit and vicodin to take home. Gone now. Nursing Notes Stated Complaint: VAGINAL PAIN AND BLEEDING/14 WKS Chief Complaint: Female Abdominal Pain Nursing Notes Reviewed: Yes Allergies: Coded Allergies: Penicillins (Verified Allergy, Intermediate, Hives, 06/11/17) Scheduled Clindamycin (Clindamycin) 300 Mg Capsule 300 MG PO QID Mupirocin (Mupirocin Ointment) 22 Gm Oint...g. 1 APPLIC TOP TID Mupirocin Nasal Oint (Bactroban Nasal Oint) 1 Gm Oint...g. 1 APPLIC NASAL TID for 7 days Nitrofurantoin Monohyd/M-Cryst (MacroBid) 100 Mg Capsule 100 MG PO BID Nitrofurantoin Monohyd/M-Cryst (MacroBid) 100 Mg Capsule 100 MG PO BID Peg/Electrolytes (Golytely Solution) 4,000 Ml Soln 4,000 ML PO Q15min Sulfamethoxazole/Trimeth 800-160 mg (Bactrim DS) 1 Each Tablet 1 TABLET PO BID Valacyclovir (Valacyclovir) 1,000 Mg Tablet 1,000 MG PO TID Scheduled PRN Cyclobenzaprine (Cyclobenzaprine) 10 Mg Tablet 10 MG PO TID PRN PRN Spasm Hydrocodone-Acetaminophen 5-325 mg (Hydrocodone-Acetaminophen 5-325 mg) 1 Each Tablet 1 TABLET PO Q4H PRN PRN For Pain Ibuprofen (Ibuprofen) 600 Mg Tablet 600 MG PO QID PRN PRN For Pain Naproxen (Naproxen) 500 Mg Tab 500 MG PO BID PRN PRN For Pain Ondansetron ODT (Zofran ODT) 4 Mg Tablet 4 MG PO Q4H PRN PRN For Nausea Ondansetron ODT (Zofran ODT) 4 Mg Tablet 4 MG PO Q4H PRN PRN For Nausea Tramadol (Tramadol) 50 Mg Tablet 50 MG PO Q4H PRN PRN For Pain General Time Seen by Provider: 17:17 Chief Complaint Vaginal bleeding Hx Obtained From: Patient Onset Occurred: 1 week ago Past Medical History Past Medical History Depression Prior meth and heroin abuse Past Surgical History [place] teeth Family History Reports: Diabetes mellitus Smoking History Current Every Day Smoker (2 cig a day for 10 years) Social History Previous methamphetamine and heroin abuse Boyfriend recently left Alcohol Use: "Social" Drug Use: In recovery, THC Other Social History: Local resident 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 06/11/2017 Ambulatory Status Independent Physical Exam Initial Vital Signs Vital Signs (First) Date Time Temp Pulse Resp B/P Pulse Ox O2 Delivery O2 Flow Rate FiO2 06/11/17 15:19 36.8 128 15 110/73 99 Room Air Initial VS: Reviewed, Vital signs abnormal Head / Eyes: Atraumatic, Normocephalic, PERRL ENT: Mucous membranes moist, Conjunctiva normal, No scleral icterus Neck: Supple, Non-tender, Full range of motion Respiratory: Breath sounds normal, Clear to auscultation, No respiratory distress Cardiovascular: Regular rate & rhythm, Heart sounds normal, Intact distal pulses Back: No CVA tenderness Lymphatic: No lymphadenopathy Extremities: Vascular intact, Neuro intact, No swelling, No tenderness Skin: Warm, Dry, No cyanosis Neurologic: Alert, Oriented, Nonfocal Psychiatric: Mood/affect normal, Behavior normal, Normal thought content General/Constitutional: Awake, Alert, No acute distress, Well appearing, Well developed, Well hydrated, Well nourished, Cooperative, Not toxic appearing Abdomen: Atraumatic, Soft, Non-tender, McBurney's non-tender, No guarding, No rebound, BS normoactive, No distention external exam only. patient with discomfort to touch of the labia. No bleeding noted. Increased vascularity of labia. no obvious yeast noted. Respiratory / Chest: Atraumatic, Breath sounds NL, Breath sounds = bilat, No respiratory distress Cardiovascular: Heart rate NL, Regular rhythm, Heart sounds NL, No gallop Interpretation & Diagnostics Lab Results Interpretation Result Diagram: 06/11/17 1600 06/11/17 1600 Test 06/11/17 16:00 06/11/17 17:46 White Blood Count 10.4th/mm3 (3.8-10.1) Red Blood Count 3.96mil/mm3 (3.90-5.20) Hemoglobin 11.3g/dL (12.0-15.6) Hematocrit 32.6% (35.0-46.0) Mean Corpuscular Volume 82.3fL (81-100) Mean Corpuscular Hemoglobin 28.5pg (27.0-35.0) Mean Corpuscular Hemoglobin Concent 34.7% (32.0-37.0) Red Cell Distribution Width 14.3% (12.3-15.4) Platelet Count 187bil/L (150-400) Neutrophils (%) (Auto) 78.9% (40-74) Lymphocytes (%) (Auto) 14.4% (14-46) Monocytes (%) (Auto) 6.0% (4-12) Eosinophils (%) (Auto) 0.5% (0-5) Basophils (%) (Auto) 0.1% (0-3) Hold Purple Top Tube Received (Received) Hold Blue Top Tube Received (Received) Sodium Level 137mEq/L (134-144) Potassium Level 3.7mEq/L (3.5-5.2) Chloride Level 104mEq/L (97-108) Carbon Dioxide Level 20mmol/L (18-29) Blood Urea Nitrogen 6mg/dL (6-20) Creatinine 0.37mg/dL (0.57-1.00) Estimat Glomerular Filtration Rate 313mL/min (>59) Glucose Level 85mg/dL (60-99) Calcium Level 8.8mg/dL (8.5-10.1) Magnesium Level 1.6mg/dL (1.6-2.6) Total Bilirubin 0.2mg/dL (0.0-1.2) Aspartate Amino Transf (AST/SGOT) 19U/L (0-50) Alanine Aminotransferase (ALT/SGPT) 14U/L (0-32) Alkaline Phosphatase 36U/L (25-150) Total Protein 6.8g/dL (6.4-8.4) Albumin 3.9g/dL (3.4-5.0) HCG Beta Subunit [id number]/mL Hold Red Top Tube Received (Received) Hold [place] Top Tube Received (Received) Urine Color Yellow (YELLOW) Urine Appearance Hazy (CLEAR,HAZY) Urine pH 7.0 (5.0-8.0) Urine Specific [place] 1.015 (1.003-1.035) Urine Protein Tracemg/dL (NEG,TRACE) Urine Glucose (UA) Negativemg/dL (NEGATIVE) Urine Ketones Negativemg/dL (NEGATIVE) Urine Occult Blood Negative (NEGATIVE) Urine Nitrite Negative (NEGATIVE) Urine Bilirubin Negative (NEGATIVE) Urine Urobilinogen Normalmg/dL (NORMAL) Urine Leukocyte Esterase Small (NEGATIVE) Urine RBC 0-2/hpf (0-2) Urine WBC 0-5/hpf (0-5) Urine Epithelial Cells Moderate/hpf (NONE-MOD) Urine Crystals None seen (NONE SEEN) Urine Bacteria None/hpf (NONE-FEW) Urine Hyaline Casts None/lpf (NONE) Urine Granular Casts None seen (NONE SEEN) Urine Waxy Casts None seen (NONE SEEN) Urine Red Blood Cell Casts None seen (NONE SEEN) Urine White Blood Cell Casts None seen (NONE SEEN) Urine Mucus None seen (None Seen) Urine Trichomonas None seen (NONE SEEN) Urine Yeast None (NONE SEEN) Urinalysis Comment None Urine Culture Reflexed Indicated Lab Results Interpretation: u tox is negative except for thc 06/11/2017 US Focused OB PROCEDURE: US OB FOLLOW UP PER FETUS LIMITED INDICATIONS: pain OUTSIDE/PRIOR DATING DATA: Last menstrual period (LMP): 02/20/17. LMP-based estimated date of delivery (CHANCE): . First dating scan (date and location): 04/10/17. Estimated date of delivery (CHANCE) from first dating scan: 12/10/17. TECHNIQUE: Real-time scanning was performed of the fetus, with image documentation and biometric measurements. COMPARISON: [facility], US, US OB<14 WKS+OB TRANSVAG, 04/29/2017, 13:23. [facility] Ultrasound, US, US OB<14 WKS+OB TRANSVAG, 04/10/2017, 16:30. FINDINGS: General: A single living intrauterine gestation is present. Presentation: Variable area Placenta: Early in anterior position. Amniotic fluid index: Early. heart rate: 158 beats per minute. biometrics: Biparietal diameter: 14 weeks 3 days Head circumference: 14 weeks 4 days Abdominal circumference: 14 weeks 5 days Femur length: 14 weeks 2 days Estimated gestational age from initial scan: 14 weeks 0 days Composite gestational age from present scan: 14 weeks 2 days Estimated weight and percentile: Not applicable Measurement variability for biometric dating: +/- 7 days from 14 weeks to 15 weeks 6 days gestation, +/- 10 days from 16 weeks to 21 weeks 6 days gestation, +/- 2 weeks from 22 weeks to 27 weeks 6 days gestation, +/- 3 weeks for 28 weeks gestation or later. weight reference: 4500 g or EFW >90/95% is considered macrosomia or large for gestational age. EFW <10% is small for gestational age. EFW 5% or less is considered intra-uterine growth restriction. Other: Not applicable. IMPRESSION: 1. Intrauterine with ultrasound estimated gestational age of 14 weeks 2 days by current study an expected age based on initial scan of 14 weeks 0 days. 2. No bleed identified. Dictated by: Phyllis Clark MD, PhD on 06/11/2017 at 18:52 Approved by: Phyllis Clark MD, PhD on 06/11/2017 at 18:57 Re-Eval/Medical Decision Med Decision/Clinical Course 21 year old female presents with multiple concerns. Urine looks good, no sign of nitrates. Culture is pending. Labs are normal. US does show 14 week pregnanacy with placenta in expected position. No sign of previa. No bleeding at this time. heart tones around 150. No sign of infection. Patient able to eat a meal in the department. Discharge & Departure Primary Impression: Intrauterine Disposition: Home Patient Instructions: at 11 to 14 Weeks (ED), at 15 to 18 Weeks (ED) Additional Instructions: The US shows you to be 14 weeks . There is no bleed identified. The placenta is in the expected position. The heartbeat is around 150. Finish the antibiotics. Your urine looks good. Continue with the fluconazole. Keep your OB appointment. Dap after urination, do not wipe. Consider changing the tloiet paper is symptoms do not resolve in the next 2 to 4 days. Use lidocaine jelly to the vaginal area to help with discomfort. Return with any concerns. Referrals: Robyn Garduno MD (PCP) EDSupervising Provider for APC: Alexsander Olivares DO copies to: Robyn Garduno MD, Sue ARNP Jun 11, 2017 17:17
[2017-06-11] MEDS ORDERED: Lidocaine 2% 6mL Topical Jelly ONE (17:37)
[2017-06-11 18:15] LABS: APPEARANCE,URINE HAZY (CLEAR,HAZY); COLOR,URINE YELLOW (YELLOW); OCCULT BLOOD,URINE NEGATIVE (NEGATIVE); UROBILINOGEN,URINE NORMAL (NORMAL)
[2017-06-11 18:49] VITALS: BP 115/46; PULSE 52; O2SAT 100
--- NOTE | 2017-06-11 18:58 | DRSVH ---
PROCEDURE: US OB FOLLOW UP PER FETUS LIMITED INDICATIONS: pain OUTSIDE/PRIOR DATING DATA: Last menstrual period (LMP): 02/20/17. LMP-based estimated date of delivery (CHANCE): . First dating scan (date and location): 04/10/17. Estimated date of delivery (CHANCE) from first dating scan: 12/10/17. TECHNIQUE: Real-time scanning was performed of the fetus, with image documentation and biometric measurements. COMPARISON: [facility], US, US OB<14 WKS+OB TRANSVAG, 04/29/2017, 13:23. [facility] Ultrasound, US, US OB<14 WKS+OB TRANSVAG, 04/10/2017, 16:30. FINDINGS: General: A single living intrauterine gestation is present. Presentation: Variable area Placenta: Early in anterior position. Amniotic fluid index: Early. heart rate: 158 beats per minute. biometrics: Biparietal diameter: 14 weeks 3 days Head circumference: 14 weeks 4 days Abdominal circumference: 14 weeks 5 days Femur length: 14 weeks 2 days Estimated gestational age from initial scan: 14 weeks 0 days Composite gestational age from present scan: 14 weeks 2 days Estimated weight and percentile: Not applicable Measurement variability for biometric dating: +/- 7 days from 14 weeks to 15 weeks 6 days gestation, +/- 10 days from 16 weeks to 21 weeks 6 days gestation, +/- 2 weeks from 22 weeks to 27 weeks 6 days gestation, +/- 3 weeks for 28 weeks gestation or later. weight reference: 4500 g or EFW >90/95% is considered macrosomia or large for gestational age. EFW <10% is small for gestational age. EFW 5% or less is considered intra-uterine growth restrictio n. Other: Not applicable. IMPRESSION: 1. Intrauterine with ultrasound estimated gestational age of [address] [facility] an expected age based on initial scan of 14 weeks 0 days. 2. No bleed identified. Dictated by: Phyllis Clark MD, PhD on 06/11/2017 at 18:52 Approved by: Phyllis Clark MD, PhD on 06/11/2017 at 18:57
[2017-06-11 19:37] VITALS: BP 118/50; PULSE 59; RESP 16; O2SAT 100
== END 2017-06-11 19:38 | disposition home or self-care (01) ==
LOC: SED 15:18
DX: O26.891 Other specified pregnancy related conditions, first trimester (principal); O99.331 Smoking (tobacco) complicating pregnancy, first trimester; F12.10 Cannabis abuse, uncomplicated; F15.21 Other stimulant dependence, in remission; F11.21 Opioid dependence, in remission; Z87.440 Personal history of urinary (tract) infections; Z3A.14 14 weeks gestation of pregnancy; Z88.0 Allergy status to penicillin